=== PATIENT | male | born 1945 | race Caucasian/White ===

== ENCOUNTER → 2018-03-29 | Outpatient (CLI) | payer MEDICARE, BC ==
[~2018-03-29] MED LIST: BYSTOLIC10 MG PO; BYSTOLIC20 MG PO; DILT180C64 PO; FINA5TAB4 PO; IOHEXOL 240 MG/ML 50ML VIAL. PO ONE; IOHEXOL 300 MG/ML 100ML VIAL. IV ONE; LISI-130 PO; PRAV10TA2 PO; SERT50TA PO
--- NOTE | 2018-03-29 10:26 | KCIC ---
CT pelvis with contrast dated 03/29/2018. No comparison available. Clinical data indication: Left inguinal pain. Left lower quadrant pain. TECHNIQUE: Contiguous axial imaging the pelvis performed after the administration of 100 cc Omnipaque 300. Delayed imaging was also performed. One or more of the following individualized dose reduction techniques were utilized for this examination: 1. Automated exposure control 2. Adjustment of the mA and/or kV according to patient size 3. Use of iterative reconstruction technique FINDINGS: Moderate size left inguinal hernia contains only fat. The hernia neck measures about 2.5 cm and a portion of sigmoid colon approaches the neck, without caudal extension.. Possible tiny right inguinal hernia with neck measuring about 5 mm. Urinary bladder is unremarkable. The prostate gland is normal in size. No free pelvic fluid or pelvic lymphadenopathy. There are atherosclerotic calcifications of the abdominal aorta and bilateral iliac system. Suspected high-grade narrowing of the common iliac artery on the right No significant bony abnormality. There is spondylotic change of the lower lumbar spine with partial sacralization of L5 on the right. Mild degenerative change the bilateral hip joint. IMPRESSION: 1. Moderate size left inguinal hernia containing only fat. 2. Tiny right inguinal hernia. 3. Atherosclerotic calcifications of the abdominal aorta and bilateral iliac system. There is suspected high-grade narrowing of the common iliac artery on the right. If indicated, arterial Doppler exam or CTA to better evaluate. Electronically signed by: Сергей Julien MD (03/29/2018 10:23 AM) [facility]-[email or web address]
== END | disposition home or self-care (01) ==
LOC: KCIC CT 07:48
PROVIDERS: ATTEND Family Medicine
DX: K40.90 Unilateral inguinal hernia, without obstruction or gangrene, not specified as recurrent (principal); I70.0 Atherosclerosis of aorta; I10 Essential (primary) hypertension; Z87.891 Personal history of nicotine dependence
CPT/HCPCS: 72193; Q9966; Q9967

== ENCOUNTER → 2018-04-09 | Outpatient (CLI) | payer MEDICARE ==
[~2018-04-09] MED LIST changes: -IOHEXOL 240 MG/ML 50ML VIAL. PO ONE; -IOHEXOL 300 MG/ML 100ML VIAL. IV ONE
--- NOTE | 2018-04-09 13:33 | KCIC ---
MRI Lumbar Spine without contrast History: Spinal stenosis, worsening chronic low back pain Technique: Multiplanar, multi sequential noncontrast MR imaging was performed of the lumbar spine. Contrast: None Comparison: September 23, 2014 Findings: Vertebral body stature and AP alignment are unchanged, within normal limits. There is again fairly advanced degenerative disc disease at L2-3 and to lesser degree at L3-4 and L4-5, mild disc desiccation L1-2. There is trace L3-4 and L2-3 endplate edema likely reactive/degenerative in etiology. Conus terminates at T12-L1. L1-L2: There is disc osteophyte complex and bulge as seen previously, minimal indentation upon the ventral thecal sac greater in the left lateral recess without significant spinal stenosis. Neural foramina are overall adequate. L2-L3: There is again disc osteophyte complex, superimposed shallow protrusion more eccentric to the left lateral recess overall similar. There is similar minimal narrowing of the far left lateral recess. There is minimal narrowing of the inferior left neural foramen more distally by disc osteophyte complex, near the extraforaminal left L2 nerve root without significant displacement. Right neural foramen is overall adequate. L3-L4: There is again disc osteophyte complex, superimposed broad posterior bulge somewhat greater. There is a new superimposed protrusion/contained extrusion greatest centrally about 6 to 7 mm AP by about 10 mm CC by 8 mm transverse. There is indentation upon the ventral thecal sac greater centrally. There is some mild prominence of posterior epidural fat. There is increased fairly severe spinal stenosis, some preserved subarachnoid space. There is left greater than right lateral recess stenosis greater in the interval. There is again mild left greater than right inferior neural foramina compromise, disc osteophyte complex near the undersurface exiting left L3 nerve root extending to proximal extraforaminal region without displacement. L4-L5: There is similar minimal disc osteophyte complex and bulge. There is mild facet degenerative change. Spinal canal is overall adequate. There is similar moderate right and mild left neural foramina compromise, narrowing on the right primarily from disc osteophyte complex which is near undersurface exiting right L4 nerve root extending to the proximal extraforaminal region. L5-S1: There is mild facet degenerative change. Spinal canal and neural foramina are adequate. Impression: 1. Comparing with the 2014 exam, there is new protrusion/contained extrusion more centrally at the L3-4 level superimposed on posterior bulge with increased fairly severe spinal stenosis, some preserved subarachnoid space. There is left greater than right lateral recess stenosis at this level. 2. There is multilevel lumbar degenerative disc disease greatest L2-3 through L4-5, multilevel mild spondylosis. 3. There is moderate narrowing of the right L4-5 neural foramen as previously, other mild neural foramina compromise such as on the left at L2-3 and L4-5 and bilaterally at L3-L4 Electronically signed by: Carlton Abdul MD (04/09/2018 1:30 PM) [facility]
== END | disposition home or self-care (01) ==
LOC: KCIC MRI 12:23
PROVIDERS: ATTEND Family Medicine
DX: M48.061 Spinal stenosis, lumbar region without neurogenic claudication (principal); M51.36 Other intervertebral disc degeneration, lumbar region
CPT/HCPCS: 72148

== ENCOUNTER → 2018-04-11 | Outpatient (CLI) | payer MEDICARE ==
[~2018-04-11] MED LIST changes: +IOHEXOL 300 MG/ML 100ML VIAL. IV ONE
--- NOTE | 2018-04-12 17:31 | KCIC ---
PQRS Compliance Statement: One or more of the following individualized dose reduction techniques were utilized for this examination: 1. Automated exposure control 2. Adjustment of the mA and/or kV according to patient size 3. Use of iterative reconstruction technique CT ANGIO ABD ILEO/FEMOR RUNOFF Clinical Indication: Iliac artery stenosis. Abnormal CT pelvis. Comparison: CT pelvis with contrast, tumor 2017. Technique: 100 cc Omnipaque 300 injected intravenously for contrast enhancement. Helical scanning performed according to protocol. Angio package applied including multiplanar reformat reconstructions and 3-D MIP reconstructions. Shaded surface display of 3-D reconstructions also performed. These are all manipulated at separate CT workstation and transferred to the PACS workstation where they are reviewed. Findings: The abdominal aorta is normal in caliber. Celiac artery is patent. SMA is patent. Single right renal artery is patent. There are 2 small caliber left renal arteries, both patent. The ALEJANDRA is patent. There is atherosclerotic calcification of the infrarenal abdominal aorta. 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 The external and internal iliac arteries are reconstituted from collaterals. Mild disease of the right external iliac artery. The common femoral and profunda arteries are patent. Mild disease of the right superficial femoral artery. The popliteal artery is patent. Atherosclerotic calcification of right calf arteries. The right peroneal artery occludes just above the ankle. Two-vessel runoff into the foot. Mild disease of the left common and external iliac arteries. No significant narrowing. The common femoral and profunda arteries are patent. Mild disease of the left superficial femoral artery. The popliteal artery is patent. Atherosclerotic calcification of proximal calf arteries. Anterior tibial artery occludes in the distal calf. Peroneal artery occludes above the ankle. Single-vessel runoff into the foot. Large calcified granuloma posterior right lower lobe. Minimal scarring or atelectasis in the lingula. Cardiac size normal. Liver, spleen, gallbladder, pancreas, and adrenal glands are normal. Kidneys enhance symmetrically, no hydronephrosis. No ureteral calculus. Stomach unremarkable. No dilated small bowel. Large left inguinal hernia is redemonstrated. The hernia now contains a short segment of the sigmoid colon. No obstruction. Distal colon diverticulosis. There is no colon wall thickening. Appendix not identified, no secondary signs of appendicitis. No abdominal adenopathy or free fluid. Urinary bladder is normal. Prostate size normal. No pelvic free fluid. Tiny right inguinal hernia contains fat. Degenerative spondylosis of the lumbar spine. IMPRESSION: 1. 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 2. There is two-vessel runoff into the foot on the right and single vessel on the left. 3. Redemonstrated large left inguinal hernia now contains a short segment of the sigmoid colon. No bowel obstruction. 4. Distal colon diverticulosis without diverticulitis. Electronically signed by: Wong Hernandez MD (04/12/2018 5:27 PM) [id number]
== END | disposition home or self-care (01) ==
LOC: KCIC CT 09:35
PROVIDERS: ATTEND Family Medicine
DX: K57.30 Diverticulosis of large intestine without perforation or abscess without bleeding (principal); M47.896 Other spondylosis, lumbar region; I77.1 Stricture of artery; K40.90 Unilateral inguinal hernia, without obstruction or gangrene, not specified as recurrent; K45.8 Other specified abdominal hernia without obstruction or gangrene; I70.0 Atherosclerosis of aorta; J84.10 Pulmonary fibrosis, unspecified; I10 Essential (primary) hypertension; Z87.891 Personal history of nicotine dependence
CPT/HCPCS: 75635; Q9967

== ENCOUNTER 2018-04-30 05:54 | Day surgery (SDC) | payer BC, MEDICARE ==
[~2018-04-30] VITALS: Ht 210.8 cm; Wt 113.9 kg
[~2018-04-30 05:54] MED LIST changes: +IBUP-1060 PO; -IOHEXOL 300 MG/ML 100ML VIAL. IV ONE; +METH-37 PO
[2018-04-30] MEDS ORDERED: BUPIVAC MPF-EPI 0.5%-1:200000 30 ML VIAL. ONE (06:52)
[2018-04-30 06:58] LABS: BASO % 1 % (0-3); EOS # 0.2 x10^3/uL (0.0-0.7); EOS % 2 % (0-3); HEMATOCRIT 44.6 % (39.0-53.0); HEMOGLOBIN 15.8 g/dL (13.0-17.5); LYMPH # 1.9 x10^3/uL (1.0-4.8); LYMPH % 23 % (24-48); MEAN CORPUSCULAR HEMOGLOBIN 32 pg (25-35); MEAN CORPUSCULAR HGB CONC 35 g/dL (31-37); MEAN CORPUSCULAR VOLUME 90 fL (79-100); MONO # 0.9 x10^3/uL (0.0-1.1); MONO % 11 % (0-9); NEUT # 5.3 x10^3uL (1.8-7.7); NEUT % 64 % (31-73); PLATELET COUNT 155 x10^3/uL (140-400); RED BLOOD COUNT 4.94 x10^6/uL (4.30-5.70); RED CELL DISTRIBUTION WIDTH 13.6 % (11.5-14.5); WHITE BLOOD COUNT 8.3 x10^3/uL (4.0-11.0)
[2018-04-30] MEDS ORDERED: fentaNYL PF VIAL 100 MCG/2 ML VIAL IV PRN ×2 (07:00)
[2018-04-30] MEDS ORDERED: PROCHLORPERAZINE 10 MG/2 ML VIAL. IV PRN (07:00)
[2018-04-30] MEDS ORDERED: MORPHINE SULFATE 2 MG/ML VIAL. IV PRN (07:00)
[2018-04-30] MEDS ORDERED: ONDANSETRON PF 4 MG/2 ML VIAL. IV PRN (07:00)
[2018-04-30] MEDS ORDERED: IV RINGERS,LACTATED 1000ML 1,000 ML IV SCH (07:00)
[2018-04-30] MEDS ORDERED: LIDOCAINE 1% PF 2 ML VIAL. ID PRN (07:00)
[2018-04-30] MEDS ORDERED: HYDROmorphone 2 MG/ML VIAL IV PRN (07:00)
[2018-04-30 07:17] LABS: ALBUMIN 3.6 g/dL (3.4-5.0); CALCIUM 9.3 mg/dL (8.5-10.1); CREATININE 1.2 mg/dL (0.7-1.3); GFR 59.9; POTASSIUM 4.7 mmol/L (3.5-5.1)
[2018-04-30] MEDS ORDERED: DEXAMETHASONE SOD PHOS 20 MG/5 ML VIAL. ONE (07:25)
[2018-04-30] MEDS ORDERED: fentaNYL PF VIAL 100 MCG/2 ML VIAL ONE ×2 (07:25→08:25)
[2018-04-30] MEDS ORDERED: PROPOFOL 20 ML IV ONE ×2 (07:25→08:21)
[2018-04-30] MEDS ORDERED: ONDANSETRON PF 4 MG/2 ML VIAL. ONE (07:25)
[2018-04-30] MEDS ORDERED: ePHEDrine PF IN SALINE 50 MG/5 ML DISP.SYRIN IV ONE (08:15)
[2018-04-30] MEDS ORDERED: PHENYLEPHRINE in 0.9% NACL PF 1 MG/10 ML SYRINGE. IV ONE (08:40)
[2018-04-30] MEDS ORDERED: SEVOFLURANE 31 TO 60 MINUTES. IH ONE (08:48)
--- NOTE | 2018-04-30 09:11 | PDOC ---
BRIEF OPERATIVE NOTE Date: Apr 30, 2018 Pre-Op Diagnosis left inguinal hernia Post-Op Diagnosis same, direct Procedure Performed repair with mesh Surgeon Shukri Anesthesia Type: General (LMA) Blood Loss 10cc IV Fluid 700cc Specimens Obtained none Findings direct hernia, no indirect sack Complications none Operative Note # [id number] MYRON COLVIN MD Apr 30, 2018 09:11
--- NOTE | 2018-04-30 09:12 | DISCH ---
DISCHARGE INSTRUCTIONS Condition on Discharge Condition on Discharge: Stable Activity After Discharge Activity Instructions for Disc: Resume previous activity, Activity as tolerated Lifting Instructions after Dis: No heavy lifting Driving Instructions after Dis: Do not drive (4-5 days) Diet after Discharge Diet after Discharge: Regular Wound Incision Care Wound/Incision Care: Ice to area for comfort Other wound/incision instructi: angela shower Follow-Up Follow up with: Shukri next week MYRON COLVIN MD Apr 30, 2018 09:12
[2018-04-30] MEDS ORDERED: oxyCODONE/APAP 5/325 1 TAB TABLET PO ONE (09:30)
[2018-04-30] MEDS ORDERED: OXYC-323 PO (09:31)
[2018-04-30] MEDS ORDERED: DOCU50CA9 PO (09:33)
[2018-04-30 10:05] VITALS: BP 132/76
--- NOTE | 2018-04-30 10:09 | OP ---
DATE OF SURGERY: 04/30/2018 PREOPERATIVE DIAGNOSIS: Left inguinal hernia. POSTOPERATIVE DIAGNOSIS: Left inguinal hernia, direct. PROCEDURE: Repair with mesh. SURGEON: Myron Colvin MD ANESTHESIA: General LMA. BLOOD LOSS: 10 INTRAVENOUS FLUIDS: 700 INDICATIONS: The patient is an obese 72-year-old gentleman with left inguinal fullness and pain, brought for repair. OPERATIVE FINDINGS: A large direct hernia involving the entirety of the inguinal floor was present. No indirect hernia sac was seen. DESCRIPTION OF PROCEDURE: The patient brought to the operating suite, given a general LMA and the left groin prepped and draped in usual sterile fashion. A 0.5% Marcaine with epinephrine was infiltrated along the incision line. Incision made and dissection carried down to the external oblique fascia. The fascia was opened in the direction of its fibers, extended through the external ring. The large direct hernia was mobilized and reduced. The cord was swept off the pubis. [place] drain placed around it and dissection carried back to the internal ring where no indirect hernia sac was found. The neck of the direct hernia was scored with cautery. It was then reduced and held in reduction with an extra large plug of Phasix mesh. This was tacked with 2-0 PDS, taking care to avoid injury to adjacent vessels. The keyhole patch was fashioned and placed over the floor and repair. The slit closed with a single 2-0 PDS stitch. When hemostasis was present and a correct sponge count obtained, the cord was returned to its normal anatomical position. The external oblique fascia closed over a running fashion with 3-0 Vicryl. Subcutaneous approximated with 3-0 Vicryl, skin closed with a subcuticular 4-0 Monocryl. Steri-Strips and sterile dressing applied. Prior to emergence from anesthesia, digital rectal exam failed to reveal evidence of prostatic enlargement or nodularity. The patient was awakened from his anesthetic and taken to the recovery room in satisfactory condition. MYRON COLVIN MD DR: ISRAEL/amparo JOB#: [id number] / [id number]
== END 2018-04-30 10:25 | disposition home or self-care (01) ==
LOC: SURG 05:54
PROVIDERS: ATTEND Surgery
DX: K40.90 Unilateral inguinal hernia, without obstruction or gangrene, not specified as recurrent (principal); I10 Essential (primary) hypertension; E78.00 Pure hypercholesterolemia, unspecified; G47.30 Sleep apnea, unspecified; F41.9 Anxiety disorder, unspecified; E66.9 Obesity, unspecified; Z68.35 Body mass index [BMI] 35.0-35.9, adult; Z87.891 Personal history of nicotine dependence; Z98.890 Other specified postprocedural states; Z83.6 Family history of other diseases of the respiratory system; Z82.0 Family history of epilepsy and other diseases of the nervous system; Z82.3 Family history of stroke; Z80.0 Family history of malignant neoplasm of digestive organs; Z88.0 Allergy status to penicillin; Z88.8 Allergy status to other drugs, medicaments and biological substances; Z79.899 Other long term (current) drug therapy; Z98.42 Cataract extraction status, left eye; Z96.1 Presence of intraocular lens
CPT/HCPCS: 36415; 49505; 80048; 82040; 85025; A7015; C1781; J1100; J1956; J2370; J2405; J2704; J3010; J3490

== ENCOUNTER → 2018-06-28 | Outpatient (CLI) | payer MEDICARE, BC ==
[~2018-06-28] MED LIST changes: +ACET325T9 PO; +DOCU50CA9 PO; +OXYC1TAB15 PO
[2018-06-28 14:23] LABS: BASO # 0.1 x10^3/uL (0.0-0.2); BASO % 1 % (0-3); EOS # 0.1 x10^3/uL (0.0-0.7); EOS % 2 % (0-3); HEMATOCRIT 44.5 % (39.0-53.0); HEMOGLOBIN 15.5 g/dL (13.0-17.5); LYMPH # 1.9 x10^3/uL (1.0-4.8); LYMPH % 26 % (24-48); MEAN CORPUSCULAR HEMOGLOBIN 32 pg (25-35); MEAN CORPUSCULAR HGB CONC 35 g/dL (31-37); MEAN CORPUSCULAR VOLUME 92 fL (79-100); MONO # 0.8 x10^3/uL (0.0-1.1); MONO % 11 % (0-9); NEUT # 4.6 x10^3uL (1.8-7.7); NEUT % 61 % (31-73); PLATELET COUNT 168 x10^3/uL (140-400); RED BLOOD COUNT 4.83 x10^6/uL (4.30-5.70); RED CELL DISTRIBUTION WIDTH 13.3 % (11.5-14.5); WHITE BLOOD COUNT 7.6 x10^3/uL (4.0-11.0)
--- NOTE | 2018-06-28 14:25 | EKG ---
[facility] [address] [place] [address] Test Date: 2018-06-28 Test Time: 14:22:39 Pat Name: ALISHA HOLLIS Department: Room: Gender: M Coater Operator: WSK : 1945 Requested By: JUNIOR KITCHEN Order Number: [id number] Reading MD: Gigi Robles MD Measurements Intervals [place] Rate: 62 P: 28 [place]: 196 QRS: -37 QRSD: 84 T: 6 QT: 440 QTc: 449 Interpretive Statements SINUS RHYTHM ABNORMAL LEFT AXIS DEVIATION LEFT ANTERIOR FASCICULAR BLOCK Electronically Signed On 07-03-2018 10:02:33 BLEACHING MACHINE OPERATOR by Gigi Robles MD
[2018-06-28 14:47] LABS: ALBUMIN 3.5 g/dL (3.4-5.0); CALCIUM 9.5 mg/dL (8.5-10.1); CREATININE 1.2 mg/dL (0.7-1.3); GFR 59.7; POTASSIUM 4.7 mmol/L (3.5-5.1); TOTAL BILIRUBIN 0.5 mg/dL (0.2-1.0); TOTAL PROTEIN 7.1 g/dL (6.4-8.2)
== END | disposition home or self-care (01) ==
LOC: SURGPAT 13:23
PROVIDERS: ATTEND Neurological Surgery
DX: Z01.818 Encounter for other preprocedural examination (principal); I44.4 Left anterior fascicular block; M51.16 Intervertebral disc disorders with radiculopathy, lumbar region; M48.062 Spinal stenosis, lumbar region with neurogenic claudication; Z88.0 Allergy status to penicillin; Z88.8 Allergy status to other drugs, medicaments and biological substances
CPT/HCPCS: 36415; 80053; 85025; 87641; 93005

== ENCOUNTER 2018-07-05 06:46 | Observation (INO) | payer MEDICARE ==
--- NOTE | 2018-07-04 15:21 | PREOP HP ---
DATE OF SERVICE: 07/05/2018. DATE OF SURGERY: 07/05/2018. HISTORY OF PRESENT ILLNESS: The patient is a pleasant 73-year-old who has difficulty with low back pain along with left buttock pain. He rates his pain as a 3/10 with sitting and it increases to an 8/10 with walking. The pain radiates into the left posterior thigh and leg and to the dorsum of his left foot. He notes feelings of weakness in the left side. The problem began in 03/2018 after lifting multiple 40-pound bags. Standing and walking increase his pain. Sitting or lying down help him. He has been taking Percocet for pain. PAST MEDICAL HISTORY: Osteoarthritis, hypertension, shingles, sleep apnea, head or neck injury, blindness in left eye. PAST SURGICAL HISTORY: Anterior cervical surgery in 1979. Posterior cervical surgery in 1979. Hernia repair 1980. Eye surgery in 1967, hernia repair 2018. FAMILY HISTORY: Alzheimer disease, heart disease, hypertension and cancer. 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 . Quit smoking greater than 5 years ago. Never drinks alcohol. ALLERGIES: PENICILLIN AND METOPROLOL. CURRENT MEDICATIONS: Cartia, finasteride, sertraline, lisinopril, pravastatin sodium, Bystolic, Colace, methocarbamol, Percocet. REVIEW OF SYSTEMS: A 12-point review of systems was obtained and is noncontributory except for that mentioned above. PHYSICAL EXAMINATION: NEUROSURGERY EXAMINATION: GENERAL APPEARANCE: Alert, pleasant, no acute distress. HEAD: Normocephalic and atraumatic. SKIN: Warm and dry. MUSCULOSKELETAL: Lumbar paraspinal muscle bulk is normal, restricted range of motion of the lumbar spine, [id number] tenderness of lower lumbar spine on palpation, normal range of motion of the lower extremities bilaterally. EXTREMITIES: No clubbing, cyanosis or edema. NEUROLOGIC: Alert and oriented x 3, normal recent and remote memory, strength 5/5 in bilateral lower extremities. Sensory was intact to light touch in bilateral lower extremities except for decrease in light touch in the left anterior leg. Reflexes are trace and symmetric in lower extremities bilaterally. Positive straight leg raising on the left with back and left leg pain. Negative straight leg raising on the right, normal gait. IMAGING: I reviewed a lumbar MRI scan. On that study, there is a very large central left-sided disc herniation at L3-L4. This is associated with significant severe spinal stenosis. ASSESSMENT/ PLAN: He has a very large disc herniation with severe spinal stenosis of L3-L4 and symptomatic left lumbar radiculopathy. My recommendation is to he undergo surgery at that level to remove the large herniated disc and decompress nerve roots. I did speak about the surgery and the risks involved. I outlined the expected postoperative course. He understands. He would like to go ahead. We will make the arrangements. JUNIOR KITCHEN MD DR: VERONIQUE/amparo JOB#: [id number] / [id number] BRITANY
[~2018-07-05] VITALS: Ht 180.3 cm; Wt 115.2 kg
[~2018-07-05 06:46] MED LIST changes: +BACITRACIN 50,000 UNIT in IV NORMAL SALINE 1000ML BAG 1,000 ML IRR ONE; +BUPIVAC MPF-EPI 0.5%-1:200000 30 ML VIAL. ONE; +GELATIN SPONGE SIZE 100. ONE; +KETOROLAC 60 MG/2 ML INJ FOR OR. ONE; +THROMBIN TOPICAL 20,000 UNIT SPRAY.SYRN KIT TP ONE
[2018-07-05] MEDS ORDERED: HYDROmorphone 2 MG/ML VIAL IV PRN (07:00)
[2018-07-05] MEDS ORDERED: PROCHLORPERAZINE 10 MG/2 ML VIAL. IV PRN (07:00)
[2018-07-05] MEDS ORDERED: MORPHINE SULFATE 4 MG/ML VIAL. IV PRN (07:00)
[2018-07-05] MEDS ORDERED: LIDOCAINE 1% PF 2 ML VIAL. ID PRN (07:00)
[2018-07-05] MEDS ORDERED: fentaNYL PF VIAL 100 MCG/2 ML VIAL IV PRN ×2 (07:00)
[2018-07-05] MEDS ORDERED: ONDANSETRON PF 4 MG/2 ML VIAL. IV PRN ×2 (07:00→14:45)
[2018-07-05] MEDS ORDERED: IV RINGERS,LACTATED 1000ML 1,000 ML IV SCH (07:00)
[2018-07-05] MEDS ORDERED: LEVO5TAB29 PO (07:13)
[2018-07-05] MEDS ORDERED: VANCOMYCIN 1GM IVPB FOR OMNI 250 ML ONE (07:29)
[2018-07-05] MEDS ORDERED: ROCURONIUM 50 MG/5 ML VIAL. ONE (08:32)
[2018-07-05] MEDS ORDERED: MIDAZOLAM HCL/PF 2 MG/2 ML VIAL. ONE (08:32)
[2018-07-05] MEDS ORDERED: REMIFENTANIL 2 MG VIAL. IV ONE (08:32)
[2018-07-05] MEDS ORDERED: fentaNYL PF VIAL 250 MCG/5 ML VIAL ONE (08:32)
[2018-07-05] MEDS ORDERED: PROPOFOL 20 ML IV ONE (09:47)
[2018-07-05] MEDS ORDERED: DEXAMETHASONE SOD PHOS 20 MG/5 ML VIAL. ONE (09:47)
[2018-07-05] MEDS ORDERED: LIDOCAINE 2% PF 5 ML VIAL. ONE (09:47)
[2018-07-05] MEDS ORDERED: PHENYLEPHRINE 10 MG/ML VIAL. ONE ×2 (09:47)
[2018-07-05] MEDS ORDERED: ONDANSETRON PF 4 MG/2 ML VIAL. ONE (09:47)
[2018-07-05] MEDS ORDERED: GLYCOPYRROLATE 1 MG/5 ML VIAL. ONE (10:35)
[2018-07-05] MEDS ORDERED: NEOSTIGMINE 10 MG/10 ML VIAL. ONE (10:36)
--- NOTE | 2018-07-05 10:54 | DISCH ---
DISCHARGE INSTRUCTIONS Condition on Discharge Condition on Discharge: Stable Activity After Discharge Activity Instructions for Disc: Activity as tolerated, Avoid exertion Other activity instructions: no driving for a week Bathing Instructions: Shower-keep dressing dry Lifting Instructions after Dis: No heavy lifting, No pulling or pushing, Do not lift >10 pounds Driving Instructions after Dis: Do not drive Diet after Discharge Diet after Discharge: Regular Additional Diet Restrictions: resume home diet Wound Incision Care Wound/Incision Care: Ice to area for comfort Other wound/incision instructi: may remove dressing in 48 hours if dry then may shower, no soaking Contacting the DRMaday after DC Call your doctor for: Concerns you may have Follow-Up Follow up with: Dr. Kitchen's nurse in 2 weeks [phone] JUNIOR KITCHEN MD Jul 05, 2018 10:54
[2018-07-05] MEDS ORDERED: DOCU-109 PO (10:57)
[2018-07-05] MEDS ORDERED: METH-38 PO (10:57)
[2018-07-05] MEDS ORDERED: HYDR-3164 PO (10:57)
[2018-07-05] MEDS ORDERED: DESFLURANE > 120 MINUTES IH ONE (11:09)
[2018-07-05] MEDS ORDERED: HYDROcodone/APAP 5/325MG 1 TAB TABLET PO ONE ×2 (11:15)
[2018-07-05] MEDS ORDERED: HYDROcodon/APAP 7.5/325MG ORAL 15 ML SOLUTION PO ONE (11:30)
[2018-07-05] MEDS ORDERED: METHOCARBAMOL 750 MG TABLET PO PRN (14:30)
[2018-07-05] MEDS ORDERED: CALCIUM CARBONATE 500 MG TAB.CHEW PO PRN (14:45)
[2018-07-05] MEDS ORDERED: HYDROcodone/APAP 5/325MG 1 TAB TABLET PO PRN (14:45)
[2018-07-05] MEDS ORDERED: ACETAMINOPHEN 325 MG TABLET. PO PRN (14:45)
[2018-07-05] MEDS ORDERED: MAG HYDROX/ALUMINUM HYD/SIMETH 30 ML ORAL.SUSP PO PRN (14:45)
[2018-07-05] MEDS ORDERED: MAGNESIUM HYDROXIDE 2,400 MG/30 ML ORAL.SUSP. PO PRN (14:45)
[2018-07-05] MEDS ORDERED: 0.9 % SODIUM CHLORIDE 10 ML DISP.SYRIN. IV PRN (14:45)
[2018-07-05] MEDS ORDERED: diphenhydrAMINE HCL 25 MG CAPSULE PO PRN (14:45)
[2018-07-05] MEDS ORDERED: NALOXONE 0.4 MG/ML VIAL. IV PRN (14:45)
--- NOTE | 2018-07-05 15:00 | NUR ---
Pt admitted from PACU. Arrived via wheelchair with HOUSE DECORATOR. A&O X4, VSS, denies pain. Was going to be discharged but was having difficulty emptying bladder. Completed admission assessment. Oriented to room and unit. Call light within reach. Family at bedside. Will continue to monitor.
[2018-07-05 15:47] VITALS: BP 167/88
[2018-07-05] MEDS: HYDROcodone/APAP 5/325MG 1 TAB TABLET PO PRN ×2 (17:27→21:32)
[2018-07-05 19:15] VITALS: BP 144/66
--- NOTE | 2018-07-05 19:15 | NUR ---
Bladder scan completed. PVR [id number]. Straight cath performed 750 drained from bladder. Asked patient to let us know after he voids so we can scan again. Updated sami العلي of POC.
[2018-07-05] MEDS ORDERED: LISINOPRIL 20 MG TABLET PO SCH (21:00)
[2018-07-05] MEDS ORDERED: DOCUSATE SODIUM 100 MG CAPSULE. PO SCH (21:00)
[2018-07-05] MEDS ORDERED: ATORVASTATIN CALCIUM 10 MG TABLET. PO SCH (21:00)
[2018-07-05] MEDS ORDERED: SERTRALINE 50 MG TABLET. PO SCH (21:00)
[2018-07-05] MEDS ORDERED: NON FORMULARY ITEM (Nebivolol Hcl (Bystolic) 20 MG) PO SCH (21:00)
[2018-07-05] MEDS: DOCUSATE SODIUM 100 MG CAPSULE. PO SCH (21:32)
[2018-07-05 23:00] VITALS: BP 138/61
[2018-07-06 03:10] VITALS: BP 144/71
[2018-07-06] MEDS: HYDROcodone/APAP 5/325MG 1 TAB TABLET PO PRN (05:52)
[2018-07-06 07:00] VITALS: BP 126/62
[2018-07-06] MEDS: DOCUSATE SODIUM 100 MG CAPSULE. PO SCH (08:47)
[2018-07-06] MEDS ORDERED: CETIRIZINE HCL 10 MG TABLET. PO SCH (09:00)
--- NOTE | 2018-07-06 11:50 | NUR ---
Pt did not have any trouble voiding all night and is able to go home tonight. Pt did not have any pain on my shift. VSS. Dc packet given. No questions asked. Pt said they already gave him the rx last night. Pt taken to main entrance by wc at 1145, accompanied by the NA.
--- NOTE | 2018-07-08 16:09 | PATHOLOGY ---
[facility] Accession Number: [id number] . 01 Material submitted: . LUMBAR DISC AND DECOMPRESSION . 01 Clinical history: . Herniated disc and radiculopathy, stenosis, neuroclaudication . 02 Diagnosis: Segments of fibrocartilaginous, fibroadipose and skeletal muscle tissue and bone, lumbar disc and decompression: - Degenerative changes of fibrocartilaginous tissue. P/07/08/2018 . 02 Comment: There is no evidence of an acute inflammatory process or malignancy. (JPM:[facility] 07/08/2018) . 02 Electronically signed: . Ernie Nuno MD, Pathologist NPI- [id number] . 01 Gross description: . Received in formalin labeled "Sourav Stevenson, lumbar disc and decompression," are several pieces of glistening, fibrous tissue measuring 5.5 x 2.7 x 0.9 cm in aggregate dimensions, containing small fragments of possible bone. The tissue submitted representatively in cassette A1, following decalcification. (TSD; 07/05/2018) TOB/TOB . 02 Pathologist provided ICD-10: M51.36 . 02 CPT . 272092, [id number] Specimen Comment: A courtesy copy of this report has been sent to Specimen Comment: [phone], . Specimen Comment: Report sent to / DR BURNETT Specimen Comment: A duplicate report has been generated due to demographic updates. Performed at: 01 [facility] [address], [place] [id number] MD Duglas Serrano MD Phone: [phone] Performed at: 02 [facility] [id number] MD Ernie Nuno MD Phone: [phone]
--- NOTE | 2018-07-10 14:55 | OP ---
DATE OF SURGERY: 07/05/2018 PREOPERATIVE DIAGNOSIS: Herniated lumbar disc, L3-L4 left with severe left lumbar radiculopathy. POSTOPERATIVE DIAGNOSIS: Herniated lumbar disc, L3-L4 left with severe left lumbar radiculopathy. OPERATION PERFORMED: Lumbar hemilaminotomy and microdiscectomy, L3-L4 left. The operation was done with EMG monitoring, SSEP monitoring, fluoroscopy, microscopic dissection. SURGEON: Ishmael Kitchen M.D. CORE SHAPER: KRYSTYNA Mills assisted with surgery, she assisted with the microdecompression as well as the closure. OPERATIVE INDICATIONS: The patient is a very pleasant 73-year-old man who developed severe intractable low back pain and pain which radiated to his left leg. On imaging studies, he was found to have a very large disc herniation at L3-L4 on the left and I recommended lumbar microsurgery to remove the disc and decompress the dura and nerve root. I spoke about the surgery, the risks, technique and expected postoperative course and he wished to go ahead. DESCRIPTION OF PROCEDURE: Following general endotracheal anesthesia, the patient was positioned prone on the Lambert table. The lumbar region was prepped and draped in standard fashion. MARLO hose and AV impulse boots were applied for DVT prophylaxis. The microscope was draped. Fluoroscopy was draped and brought in the field. Monitoring was established. Vancomycin 1 gram was given. Using fluoroscopic guidance, a midline incision was made directly over the L3-L4 interspace. I dissected down through skin and subcutaneous tissue and reflected the paraspinal muscles and placed a [place] micro disc retractor. I brought in the microscope and using the high speed air drill I burred down a very generous hemilaminotomy. I carried this virtually to the midline and created a wide exposure. I gently developed a plane between the lateral edge of the nerve root and gently retracted the root medially and placed a [place] micro disc retractor. The nerve was lifted and the dura was compressed by a large subligamentous disc fragment and I gently incised this portion of the lateral ligament and then began to tease back and remove multiple disc fragments. As I worked, the region became more and more decompressed. I worked more medially, entered the disc space and performed a generous discectomy with pituitary rongeurs. Further medially I gently milked back with the [place] dental and removed several moderate sized fragments. At that point, I had an excellent decompression of the nerves, dura and nerve roots were very relaxed. The discectomy had been completed. There were no retained fragments. I irrigated copiously. I did use a bipolar cautery judiciously for any epidural bleeding and small amount of bone wax where necessary for any bone bleeding, and hemostasis was excellent. At this point, I irrigated copiously, removed the retractor. I obtained hemostasis in the muscles. I closed the wound in layers with absorbable suture. The skin was closed with 4-0 subcuticular stitch. The operation went very well and the patient was taken to the recovery room in excellent condition. I was quite pleased with the surgery. ISHMAEL KITCHEN MD DR: VERONIQUE/amparo JOB#: [id number] / [id number] BRITANY
== END 2018-07-06 18:00 | disposition home or self-care (01) ==
LOC: SURG 06:46 → 4 NORTH 14:20
PROVIDERS: ADMIT Neurological Surgery; ATTEND Neurological Surgery
DX: M51.16 Intervertebral disc disorders with radiculopathy, lumbar region (principal); M48.062 Spinal stenosis, lumbar region with neurogenic claudication; I10 Essential (primary) hypertension; G47.30 Sleep apnea, unspecified; Z82.0 Family history of epilepsy and other diseases of the nervous system; Z82.49 Family history of ischemic heart disease and other diseases of the circulatory system
CPT/HCPCS: 63047; 76000; 88304; 88311; 97162; 97530; A7015; G0378; G0379; G8978; G8979; G8980; J1100; J1885; J2001; J2704; J2710; J3010; J3370; J3490; J7030; J7120; J2250; J2405